=== PATIENT | male | born 1995 | race African-American/Black ===

== ENCOUNTER 2020-08-09 19:41 | Emergency (ER) | payer OTHER ==
[~2020-08-09] VITALS: Ht 175.3 cm; Wt 115.7 kg
[2020-08-09 20:16] LABS: ABSOLUTE NEUTROPHILS 3.1 thou/uL (1.4-8.2); BASOPHILS 0.7 % (0.0-2.0); EOSINOPHILS 3.1 % (0.0-3.0); HEMATOCRIT 45.5 % (42.0-52.0); HEMOGLOBIN 15.7 gm/dL (14.0-18.0); LYMPHOCYTES 22.5 % (24.0-44.0); MCH 28.9 pg (26.0-34.0); MCHC 34.4 g/dL (28.0-37.0); MCV 83.9 fL (80.0-100.0); MONOCYTES 5.5 % (1.0-8.0); PLATELET COUNT 158 thou/uL (150-400); POLYS 68.2 % (36.0-66.0); RBC 5.42 mil/uL (4.50-6.00); RDW 13.7 % (10.5-14.5); WBC 4.6 thou/uL (4.0-11.0)
[2020-08-09] MEDS ORDERED: PROAIR HFA8.5 GM INH (21:10)
[2020-08-09] MEDS ORDERED: ZPAK PO (21:10)
[2020-08-09] MEDS ORDERED: PREDNISONE 20 M20 MG PO (21:10)
[2020-08-09 21:19] VITALS: BP 136/71
== END 2020-08-09 21:19 | disposition home or self-care (01) ==
LOC: ER 19:41
PROVIDERS: Nurse Practitioner
DX: U07.1 COVID-19 (principal); J45.901 Unspecified asthma with (acute) exacerbation; I10 Essential (primary) hypertension; Z88.0 Allergy status to penicillin

== ENCOUNTER 2020-11-28 20:51 | Emergency (ER) | payer OTHER ==
[~2020-11-28] VITALS: Ht 175.3 cm; Wt 122.5 kg
[~2020-11-28 20:51] MED LIST: PREDNISONE 20 M20 MG PO; PROAIR HFA8.5 GM INH; ZPAK PO
[2020-11-28 21:59] LABS: URINE BILIRUBIN NEGATIVE (Negative); URINE BLOOD 2+ (Negative); URINE CLARITY SL CLOUDY; URINE COLOR YELLOW; URINE GLUCOSE-RANDOM* NEGATIVE (Negative); URINE KETONES NEGATIVE (Negative); URINE NITRITE-REFLEX NEGATIVE (Negative); URINE PROTEIN (DIPSTICK) 1+ (Negative); URINE SPECIFIC GRAVITY >= 1.030 (1.005-1.035); URINE UROBILINOGEN 0.2 E.U./dl (0.2-1.0)
[2020-11-28] MEDS ORDERED: CIPROFLOXACIN500 M1 PO (22:04)
[2020-11-28] MEDS ORDERED: NORCO7.5 PO (22:04)
[2020-11-28 22:14] LABS: URINE LEUKOCYTES-REFLEX 1+ (Negative)
[2020-11-28 22:25] LABS: CASTS None Seen /LPF (None Seen); MUCUS >6 Heavy strn/LPF (None Seen); SQUAMOUS None Seen /LPF (0-3); URINE WBC-REFLEX 6-15 Few /HPF (0-5)
[2020-11-28 22:26] LABS: BACTERIA-REFLEX 1-9 Few /HPF (None Seen); CRYSTALS None Seen /LPF (None Seen)
[2020-11-28 23:22] VITALS: BP 160/100
== END 2020-11-28 23:20 | disposition home or self-care (01) ==
LOC: ER 20:51
PROVIDERS: Emergency Medicine
DX: N45.1 Epididymitis (principal); I10 Essential (primary) hypertension; J45.909 Unspecified asthma, uncomplicated; Z79.899 Other long term (current) drug therapy; Z88.0 Allergy status to penicillin